=== PATIENT | female | born 1980 | race Caucasian/White ===

== ENCOUNTER → 2017-06-11 | Outpatient (CLI) | payer OTHER ==
[~2017-06-11] MED LIST: ACET50TA PO; ANUS2.5C2 PR; COLA100C5 PO; DOCU10ELUD PO; FISH306C PO; IBUP80TA PO; MOTR200T44 PO; PERCOCET PO; PRENTAB74 PO; STUACAP PO
--- NOTE | 2017-06-11 10:59 | REPMRS ---
Patient History The patient states she has not had a clinical breast exam in over a year. Patient had first child at age 33. Family history of breast cancer in paternal aunt at age 63 and breast cancer in paternal aunt at age 39. Digital Mammo Screening Bilat: June 11, 2017 - Exam #: [id number] Bilateral CC and MLO view(s) were taken. Technologist: Amelia Conrad, Technologist Prior study comparison: June 02, 2014, bilateral digital mammo screening bilat performed at [facility]. FINDINGS: The breast tissue is heterogeneously dense. This may lower the sensitivity of mammography. There has been no change in the appearance of the mammogram from the prior studies. There is a moderate amount of residual fibroglandular tissue which is fairly symmetric. There is no interval development of dominant mass, areas of architectural distortion, or clustered microcalcification typical of malignancy. ASSESSMENT: BI-RADS/ACR category 1 mammogram. Negative. Recommendation Routine screening mammogram in 1 year (for women over age 40). This mammogram was interpreted with the aid of an FDA-approved computer-aided dectection system. Electronically Signed By: Jorge Alberto Vargas MD 06/11/17 [id number]
== END ==
LOC: M RAD 09:39
PROVIDERS: ATTEND Physician Assistant
DX: Z12.31 Encounter for screening mammogram for malignant neoplasm of breast (principal)

== ENCOUNTER → 2017-07-12 | Outpatient (REF) | payer OTHER | LOC: M SFHCLERA 10:05 | PROVIDERS: ATTEND Physician Assistant | DX: J02.9 Acute pharyngitis, unspecified (principal) ==

== ENCOUNTER 2017-08-06 08:24 | Day surgery (SDC) | payer OTHER ==
[2017-08-06] MEDS: LR 1,000 ML IV (08:30)
[2017-08-06 08:48] LABS: CONTROL LINE UCG INT CTR LINE PRESENT; URINE PREG TEST NEGATIVE (NEGATIVE)
[2017-08-06] MEDS ORDERED: SCOPOLAMINE 1MG TRANSDERMAL PATCH As Ordered (10:02)
[2017-08-06] MEDS: SCOPOLAMINE 1MG TRANSDERMAL PATCH TOP (10:15)
[2017-08-06] MEDS ORDERED: LIDOCAINE 2% INJ 100 MG/5 ML SDV (FOR ANES.) As Ordered (10:38)
[2017-08-06] MEDS ORDERED: PROPOFOL 200 MG/20 ML VIAL As Ordered ×2 (10:38→10:54)
[2017-08-06] MEDS ORDERED: MIDAZOLAM INJ 2 MG/2 ML VIAL (J2250) As Ordered (10:38)
[2017-08-06] MEDS ORDERED: fentaNYL 100 MCG/2 ML INJECTION (J3010) As Ordered (10:38)
[2017-08-06] MEDS ORDERED: ONDANSETRON 4MG/2ML VIAL (J2405) As Ordered (10:44)
[2017-08-06] MEDS ORDERED: dexameTHASONE 4 MG/ML 1ML VIAL (J1100) As Ordered (10:44)
[2017-08-06] MEDS: LIDOCAINE W/EPINEPHRINE 1% 20ML VIAL As Ordered (10:55)
[2017-08-06] MEDS: BUPIVACAINE HCL 0.25% 30 ML VIAL As Ordered (10:55)
[2017-08-06] MEDS ORDERED: METOCLOPRAMIDE INJ 10MG/2ML VIAL (J2765) IV (11:45)
[2017-08-06] MEDS ORDERED: fentaNYL 100 MCG/2 ML INJECTION (J3010) IV (11:45)
[2017-08-06] MEDS ORDERED: LR 1,000 ML IV (11:45)
[2017-08-06] MEDS ORDERED: D5W/LR 1,000 ML IV (11:45)
[2017-08-06] MEDS ORDERED: ONDANSETRON 4MG/2ML VIAL (J2405) IV (11:45)
[2017-08-06] MEDS ORDERED: PERCOCET 5MG/325MG TAB PO ×3 (11:45)
== END 2017-08-06 12:15 | disposition home or self-care (01) ==
LOC: M SDC 08:24
DX: G56.01 Carpal tunnel syndrome, right upper limb (principal); G43.909 Migraine, unspecified, not intractable, without status migrainosus; Z88.5 Allergy status to narcotic agent; Z91.018 Allergy to other foods; Z91.040 Latex allergy status
CPT/HCPCS: 64721